=== PATIENT | female | born 1985 | race Two or more races ===

== ENCOUNTER → 2019-05-03 11:22 | Outpatient (CLI) | payer OTHER, SELFPAY ==
[2016-07-13 12:29] VITALS: BMI 26.3
[2019-05-03 12:04] LABS: Anion Gap 6 (5-15); BUN 21 mg/dL (7-18); BUN/Creat Ratio 26.6 RATIO (10-20); CRP, High Sensitivity Cardiac 0.96 mg/L; Calcium,Total 9.2 mg/dL (8.5-10.1); Chloride 109 mmol/L (98-107); Creatinine, Serum 0.79 mg/dL (0.55-1.02); EST Glomerular Filtration Rate 90 mL/min (>60); Est Glom Filt Rate - Afr Amer 108 mL/min (>60); Glucose 65 mg/dL (74-106); Potassium 4.2 mmol/L (3.5-5.1); Sodium Level 142 mmol/L (136-145); Thyroid Stim Hormone (TSH) 0.74 uIU/mL (0.358-3.74)
== END ==
PROVIDERS: Family Provider Family Medicine; PCP Family Medicine; Referring Provider Family Medicine; Visit Provider Family Medicine
DX: Z71.89 Other specified counseling (principal)
CPT/HCPCS: 36415; 80048; 84443; 86141

== ENCOUNTER → 2019-06-19 16:20 | Outpatient (CLI) | payer OTHER, SELFPAY ==
[2016-07-13 12:29] VITALS: BMI 26.3
[2019-06-19 17:41] LABS: Absolute Lymphocyte Count 2.65 X10^3/uL (0.83-4.51); Absolute Neutrophil Count 3.1 X10^3/uL (2.0-7.7); Basophil# 0.03 X10^3/uL; Basophil% 0.5 % (0-1); Eosinophils% 1.6 % (0-5); Hematocrit 39.1 % (37-47); Hemoglobin 12.8 g/dL (12.0-15.0); Lymphocyte # 2.65 X10^3/ul (4.0); Lymphocyte % 42.5 % (19-41); Mean Corp Hgb Conc 32.7 g/dL (32-36); Mean Corpuscular Hgb 29.9 pg (27.0-32.0); Mean Corpuscular Volume 91.4 fL (81-99); Mean Platelet Vol. 11.5 fl (6.2-12.0); Monocyte# 0.37 X10^3/uL; Monocyte% 5.9 % (0-10); NRBC Flagged by Analyzer 0 % (0-5); Neutrophil # 3.07 X10^3/uL (2.7-7.7); Neutrophil % 49.3 % (47-70); Platelet Count 234 K/mm3 (150-450); RBC Distribution Width CV 12.5 % (11.6-14.6); Red Blood Count 4.28 M/mm3 (4.2-5.4); White Blood Count 6.2 K/mm3 (4.4-11.0)
[2019-06-19 18:17] LABS: Internal QC Validated? YES +Cl - CLEAR BKGD
[2019-06-19 18:18] LABS: Pregnancy, Serum, hCG Quali. POSITIVE Negative; Thyroid Stim Hormone (TSH) 0.71 uIU/mL (0.358-3.74)
[2019-06-20 10:24] LABS: HIV - WCH Non-Reactive (Nonreactive); Hepatitis B Surface Antigen Non-Reactive (Nonreactive); Hepatitis C Antibody Non-Reactive (Nonreactive); Progesterone Level 24.86 ng/mL (See Comment); Rubella IgG 32.6 IU/mL
[2019-06-26 03:11] LABS: Prenatal RPR NONREACTIVE (NONREACTIVE)
== END ==
PROVIDERS: Family Provider Family Medicine; PCP Family Medicine; Referring Provider Family Medicine; Visit Provider Family Medicine
DX: Z34.90 Encounter for supervision of normal pregnancy, unspecified, unspecified trimester (principal)
CPT/HCPCS: 36415; 84144; 84443; 84703; 85025; 86703; 86762; 86803; 87340

== ENCOUNTER 2020-02-17 06:39 | Inpatient (IN) | payer OTHER, SELFPAY ==
[2016-07-13 12:29] VITALS: BMI 26.3
[2020-02-17] VITALS (76 sets, daily range): BP systolic 99–138; BP diastolic 58–90; PULSE 82–161; RESP 18–20; TEMP 36.4–37.7; O2SAT 91–100; BMI 26.2
[2020-02-17] MEDS: Lactated Ringers 1,000 ML 50 ML IV (07:10)
[2020-02-17] MEDS: Lactated Ringers 500 ML 999 ML IV (07:15)
[2020-02-17 07:32] LABS: Absolute Lymphocyte Count 1.39 X10^3/uL (0.83-4.51); Absolute Neutrophil Count 4.3 X10^3/uL (2.0-7.7); Basophil# 0.02 X10^3/uL; Basophil% 0.3 % (0-1); Eosinophil# 0.06 X10^3/uL; Hematocrit 38.9 % (37-47); Hemoglobin 12.7 g/dL (12.0-15.0); Lymphocyte # 1.39 X10^3/ul (4.0); Lymphocyte % 22.2 % (19-41); Mean Corp Hgb Conc 32.6 g/dL (32-36); Mean Corpuscular Hgb 30.4 pg (27.0-32.0); Mean Corpuscular Volume 93.1 fL (81-99); Mean Platelet Vol. 10.9 fl (6.2-12.0); Monocyte# 0.45 X10^3/uL; Monocyte% 7.2 % (0-10); NRBC Flagged by Analyzer 0 % (0-5); Neutrophil # 4.31 X10^3/uL (2.7-7.7); Neutrophil % 68.8 % (47-70); Platelet Count 184 K/mm3 (150-450); RBC Distribution Width CV 13.6 % (11.6-14.6); RBC Distribution Width SD 46.5 fl (35.1-43.9); Red Blood Count 4.18 M/mm3 (4.2-5.4); White Blood Count 6.3 K/mm3 (4.4-11.0)
--- NOTE | 2020-02-17 08:23 | PCM.HP.OB ---
- Problem List (1) 40 weeks gestation of Status: Acute History Date of Admission: 02/17/20 Final LAURY: 02/16/20 Final LAURY Source: US <20 weeks Gestational age: 40 Weeks and 1 Days History of this : This is a 35 year-old, G [2], P [1], at 40 weeks gestational age. Allergies No Known Allergies Allergy (Verified 07/08/16 13:58) Home Medications: Home Medications Vits [Prenatabs FA] 1 tablet PO DAILY 07/08/16 Ferrous Sulfate [Iron] 325 mg PO BID 02/17/20 Smoking Status: Never smoker Number of Fetus(es): 1 NST - FHR Rate Baby A Baseline: 130 Variability:: Moderate Accelerations:: 15 x 15 Decelerations:: None NST Reactive:: Yes FHR Category:: Category I Uterine Activity:: 7m History Past Pregnancies: PRIOR DELIVERY HISTORY DEL DATE GEST LAB WT LB WT OZ TYPE ANES LABOR [place] Jul 21 39 4 5 0 Vag Epidural No Labs: Mom's Labs & Results 02/17/20 02/17/20 02/17/20 07:10 07:10 07:45 WBC 6.3 RBC 4.18 L Hgb 12.7 Hct 38.9 MCV 93.1 MCH 30.4 MCHC 32.6 RDW Std Deviation 46.5 H RDW Coeff of Kira 13.6 Plt Count 184 MPV 10.9 Immature Gran % (Auto) 0.500 Neut % (Auto) 68.8 Lymph % (Auto) 22.2 [place] % (Auto) 7.2 Eos % (Auto) 1.0 Baso % (Auto) 0.3 Absolute Neuts (auto) 4.3 Absolute Lymphs (auto) 1.39 Nucleated RBC % 0 COVID-19 (MIHIR) Pending Blood Type Pending Antibody Screen Pending Course Did the patient receive Yes care? Labs Blood Type: A RH: POSITIVE RPR/VDRL/Syphilis Nonreactive Rubella status Immune HbSAg Negative Date Done: 07/09/19 Chlamydia Negative Gonorrhea Negative HIV/AIDS Non-Reactive Group B Strep: Negative Current Obstetrical History Gestational Diabetes No Incompetent Cervix No Infertility No IUGR No Macrosomia No Hypertension/Pre-eclampsia No Placenta Previa/Abruption No PTL/PROM No Uterine anomaly No Oligohydramnios No Polyhydramnios No Multiple gestation No Past Medical History Asthma No Diabetes No Hypertension No Heart disease No Mitral valve prolapse No Neurologic/Seizure disorder/ No Migraines Kidney disease No Liver disease No Varicosities No Clotting disorders/Hx of DVT No Thyroid Dysfunction No Other medical diseases No Psychiatric disorders No Major trauma No Abnormal PAP smear No Sleep apnea No Mammogram in the last 2 years No Social History Marital Status: Alleged father Michi Hx Smoking No Smoking Status Never smoker Expected Infant Delivery Method: Spontaneous Vaginal Number of Visits: 10 Review of Systems Constitutional: Denies: Chills, Fever, Weight Change HEENT: Denies: Head Aches, Sinus Congestion, Sinus Drainage Cardiovascular: Denies: Chest Pain, Palpitations Respiratory: Denies: Cough, Shortness of breath at rest, Sputum production Gastrointestinal: Denies: Abdominal Pain, Nausea, Vomiting Genitourinary: Denies: Dysuria Musculoskeletal: Denies: Joint Pain, Joint Tenderness Skin: Denies: Rash, Wounds Neurological: Denies: Numbness, Tingling, Focal weakness Psychiatric: Denies: Anxiety, Depression, Homicidal Ideations, Suicidal Ideations Hematologic/ Lymphatic: Denies: Easy Bruising, Easy Bleeding Physical Exam Vitals: Vital Signs Temp Pulse BP 98.6 F 99 121/82 H 02/17/20 07:12 02/17/20 07:12 02/17/20 07:12 General: Alert, Oriented x3, No apparent distress HEENT: Atraumatic, Normocephalic. Negative for: Thyromegaly, Lymphadenopathy Cardiovascular: Regular rate, Regular Rhythm Lungs: Clear to auscultation Abdomen: Bowel Sounds Present, Gravid Neurological: Deep Tendon Reflexes 2+/4 and Symmetrical, Neuro grossly intact MOBILITY ENGINEER: Normal external genitalia. Negative for: Vulvar lesions Estimated gestational size: Appropriate for gestational size Presentation: Cephalic Cervix Dilation (cm): 5 - per RN Station: -2 Effacement (%): 80 Assessment/Plan All Active Problems 40 weeks gestation of (Acute) A/P: This is a 35 year-old, G [2], P [1], at 40 weeks gestational age. SVE 5/80/-2 per client relations specialist UC Q7m SROM at 0330 NST FHR baseline 130, +accels, -decels, moderate variability, Category I Updated attending Dr. Lovelace on admission Expect Procedure Criteria Procedure Type: Elective COVID Risk Discussion: The surgeon/proceduralist and patient have discussed in detail the risk of exposure to and/or potential harm posed by the COVID-19 virus with having a surgery/procedure at this time versus the risk of delaying the surgery/procedure. It is not possible to know either the risk of delaying the surgery or procedure or chance of getting an infection with perfect accuracy, but a joint decision was made between the patient and the surgeon/proceduralist to proceed at this time with the scheduled surgery/procedure as indicated on the consent form.
[2020-02-17] MEDS: fentaNYL-bupivacaine (epidural) 100 ML BAG EPIDURAL ×2 (08:39→12:51)
[2020-02-17] MEDS: Oxytocin 30 units/NS 500 ml 30 UNITS/500 ML IV.SOLN IV (10:51)
[2020-02-17] MEDS: Mag Hydrox/Al Hydrox/Simeth 30 ML UDC PO (12:03)
--- NOTE | 2020-02-17 13:12 | PCM.PN.BLA ---
Progress Note LABOR PROGRESS NOTE Aleksandr is comfortable with her epidural. Reports heart racing intermittently. Denies chest pain, sob. AVSS GEN - NAD, AAO x 3 FHR 130, moderate variability, + accelerations, , + variability TOCO 3-4/10 min SVE 5/60/-3, moderate, midposition A/P: 35yo @ 40 1/7wga, Cat II FHR with intermittent maternal tachycardia -IVF bolus -IUPC placed, increase pitocin to adequacy -Maternal and statuses overall reassuring. STROKE Vital Signs/Narrative: Vital Signs Temp Pulse BP Pulse Ox 02/17/20 13:09 100 100 02/17/20 13:04 155 H 100 02/17/20 12:59 109 H 109/68 100 02/17/20 12:54 102 H 100 02/17/20 12:49 161 H 100 02/17/20 12:44 98 100 02/17/20 12:39 112 H 100 02/17/20 12:14 99.7 F H 02/17/20 12:08 99 97 02/17/20 12:03 98 96 02/17/20 11:58 95 99 02/17/20 11:53 107 H 98 02/17/20 11:52 103 H 131/90 H 02/17/20 11:48 101 H 100 02/17/20 11:06 93 109/70 02/17/20 11:03 98.9 F 91 100 02/17/20 10:58 95 100 02/17/20 10:53 92 100 02/17/20 10:48 85 100 02/17/20 10:43 103 H 100 02/17/20 10:38 93 100 02/17/20 10:33 92 100 02/17/20 10:28 85 100 02/17/20 10:23 93 100 02/17/20 10:18 85 100 02/17/20 10:13 88 100 02/17/20 10:08 84 100 02/17/20 10:03 92 100 02/17/20 09:58 84 100 02/17/20 09:53 117 H 100 02/17/20 09:48 93 100 02/17/20 09:43 93 100 02/17/20 09:38 93 99 02/17/20 09:36 82 127/85 H 02/17/20 09:33 99 100 02/17/20 09:28 109 H 100 02/17/20 09:23 118 H 100 02/17/20 09:18 93 97 02/17/20 09:13 140 H 100
[2020-02-17] MEDS: Dextrose 5%-Lactated Ringers 1,000 ML 125 ML IV (14:01)
[2020-02-17] MEDS: Oxytocin 30 units/NS 500 ml 30 UNITS/500 ML IV.SOLN 334 UNITS IV (14:58)
--- NOTE | 2020-02-17 17:19 | PCM.OPRPT ---
Problem List (1) (spontaneous vaginal delivery) Status: Acute (2) 40 weeks gestation of Status: Acute Vaginal Delivery Maternal Presentation: Spontaneous Rupture of Membranes Method of Induction: - - pitocin augmentation Amniotic Membrane Rupture Type: Spontaneous at home Rupture of Membrane time: 0300h 02/17/20 Amniotic Fluid Description: Clear Final LAURY: 02/16/20 Final LAURY Source: US <20 weeks Gestational age: 40 Weeks and 1 Days Date of Procedure: 02/17/20 Pre-Operative Diagnosis: 40 1/7wga Post-Operative Diagnosis: 40 1/7wga Surgery/ Procedure Performed: Spontaneous Vaginal Delivery Anesthesiologist: Jana Cárdenas Type of Anesthesia: Epidural Description of Procedure: Patient was FD/+3 station on my arrival with Cat I FHR. She pushed to deliver a vigorous female in OA. The was placed on the maternal abdomen and further attended by nursery personnel. The cord was doubly clamped and cut at 2 minutes of life. The placenta delivered spontaneously and appeared intact on inspection. A second degree perineal laceration with vaginal extension was repaired with 3-0 Vicryl Rapide with excellent hemostasis. Sponge and needle counts were correct x 2. Presentation: Vertex Placental Delivery Description: Spontaneous Placenta Disposition: [facility] Cord Vessel Description: 3 Vessels Nuchal Cord Compression: Without compression Cord Entanglement: Around neck x 1, loose Drain: Belle to straight drain Estimated Blood Loss: 500 mL Infant A gender: Female (1 minute): 8 (5 minute): 9 Episiotomy Description: None Laceration: Midline, Perineal Extension/lac, Vaginal Extension/lac, 2nd degree Medications given after delivery: IV Pitocin Complications: None
[2020-02-17] MEDS: 0.9% Saline Lock 10 ML Syringe IV (17:57)
[2020-02-17] MEDS: Ibuprofen 600 MG Tablet PO (19:14)
[2020-02-18 03:27] VITALS: BP 109/57; PULSE 89
[2020-02-18 03:30] VITALS: BP 109/57; PULSE 89; RESP 12; TEMP 37.2
[2020-02-18 08:20] VITALS: BP 129/75; PULSE 86; RESP 16; TEMP 37.1; O2SAT 98
--- NOTE | 2020-02-18 08:20 | PCM.PN.OB ---
Patient Problems: Active and Suspected Problems 40 weeks gestation of (Acute) (spontaneous vaginal delivery) (Acute) Subjective: Aleksandr is sore, but pain is manageable. She is out of bed, ambulating without difficulty. No voiding difficulty. Denies heavy lochia. is nursing well, but the latch was painful and Aleksandr had some bleeding. Objective: AVSS - Physical Exam Vitals/I&O's: Vital Signs Temp Pulse Resp BP Pulse Ox 99 F 89 12 109/57 L 98 02/18/20 03:30 02/18/20 03:30 02/18/20 03:30 02/18/20 03:30 02/17/20 23:51 Oxygen Delivery Method Room Air Weight: 69.4 kg Body Mass Index (BMI) 26.2 Intake and Output for Last 24 Hours 02/16/20 02/17/20 02/18/20 23:59 23:59 23:59 Intake Total 4998.85 / 4998.85 Output Total 2375 / 2375 Balance 2623.85 / 2623.85 General: Alert, Oriented x3, Cooperative, No apparent distress HEENT: Atraumatic, Normocephalic Lungs: Clear to auscultation, Normal air movement Cardiovascular: Regular rate, Regular Rhythm, Normal S1, Normal S2 Abdomen: Soft, Non Tender, Non-Distended, - - Fundus firm and nontender at the umbilicus, lochia moderate Extremities: No Calf Tenderness, - - trace b /l LE edema Neurological: Neuro grossly intact Psych/Mental Status: Normal Affect, Appropriate, Alert and oriented to time, place, person, mood and affect Laboratory Results 02/17/20 07:10: Blood Type A POSITIVE, Antibody Screen NEGATIVE 02/17/20 07:45: COVID-19 (MIHIR) Not Detected Current Medications Acetaminophen (Tylenol) 1,000 mg PO Q8H PRN PRN PRN Reason: Pain Score 1-3/10 Bisacodyl (Dulcolax) 10 mg RECTAL UD PRN PRN Reason: If no BM Dibucaine (Dibucaine) 1 applic TOPICAL TID PRN PRN; Protocol PRN Reason: Discomfort Hydrocortisone (Hytone) 1 applic TOPICAL TID PRN PRN; Protocol PRN Reason: Discomfort Ibuprofen (Motrin) 600 mg PO Q6H PRN PRN PRN Reason: Pain Score 1-10 Last Admin: 02/17/20 19:14 Dose: 600 mg Documented by: Methylergonovine Maleate (Methergine) 0.2 mg IM X1 PRN PRN Reason: Excess bleeding/uterine atony Ondansetron HCl (Zofran) 4 mg IV Q4H PRN PRN PRN Reason: Nausea Senna/Docusate Sodium (Senokot-S, Cathy-Colace) 1 - 2 tablet PO DAILY PRN PRN PRN Reason: Constipation Simethicone (Mylicon) 80 mg PO PCHS PRN PRN Reason: Indigestion/Stomach pain Sodium Chloride () 5 - 15 ml IV UD PRN PRN Reason: SALINE FLUSH Medical Necessity - Tobacco Use Smoking Status: Never smoker Assessment/Plan All Active Problems 40 weeks gestation of (Acute) (spontaneous vaginal delivery) (Acute) 35yo PPD#1 s/p doing well. Rh positive - nursing support and consultation as needed Will plan for discharge home later today
--- NOTE | 2020-02-18 08:27 | DCINST_ITS ---
Discharge Diet: No Restrictions Discharge Activity: Return to Normal Activity, May Shower, May Take a Tub Bath May resume sexual activity in: 4-6 weeks Lifting Restrictions: 10-20 lb Call your doctor if you observe: Fever of 101 or Higher, Inability to urinate, Inability to have a bowel movement, Using more than one pad per hour, Shortness of breath, Calf discomfort, Uncontrolled pain Cleanse incision/area with: Soap & Water Additional Instructions: If you experience any of the following, contact your healthcare provider. * Bleeding that soaks a pad every hour for 2 hours * Fever 100.4 or higher * Unrelieved incision or abdominal pain * Swelling, redness, discharge or bleeding from your incision or episiotomy site * Your incision begins to separate * Problems urinating (including inability to urinate or burning while urinating). * Visual changes * Severe headache * Flu-like symptoms * Pain or redness in one of both of your breasts * Pain, warmth, tenderness or swelling in your legs, especially the calf area * Frequent nausea and vomiting * Symptoms of depression or anxiety If you experience any of the following, call 911 or go to the nearest Emergency Room. * Chest pain * Problems breathing * Seizure activity * Partial or complete paralysis of a body part, slurred speech, weakness or drooping of the face, or a sudden inability to walk or hold your balance Allergies/Adverse Reactions: Allergies No Known Allergies Allergy (Verified 07/08/16 13:58) Medications to take at Discharge Vits [Prenatabs FA ] 1 tablet PO DAILY 07/08/16 Ferrous Sulfate [Iron] 325 mg PO BID 02/17/20 Ibuprofen [Motrin] 600 mg PO Q8H PRN PRN #30 tab 02/18/20 Senna/Docusate Sodium [Senokot-S] 1 - 2 tab PO DAILY PRN PRN #60 tab 02/18/20 The following prescriptions were given: Ibuprofen [Motrin] 600 mg PO Q8H PRN PRN #30 tab PRN Reason: Pain Score 1-05/15 Transmission Status: Pending to [id number] Senna/Docusate Sodium [Senokot-S] 1 - 2 tab PO DAILY PRN PRN #60 tab PRN Reason: Constipation Transmission Status: Pending to [id number] Please Follow Up With: Madelaine Lovelace MD - telehealth follow up When: 2-3 weeks Please Follow Up With: Madelaine Lovelace MD - visit When: 6 weeks Primary Care Physician: Real Holguin MD [Primary Care Provider] - Test Results: Test results from this visit will be discussed in further detail at your follow- up appointment, if applicable.
[2020-02-18 08:29] VITALS: BP 129/75; PULSE 86
[2020-02-18 13:09] VITALS: BP 112/72; PULSE 103; RESP 16; TEMP 37.3
== END 2020-02-18 16:50 | disposition home or self-care (01) | DRG 807 ==
LOC: WPOUT 06:43 → WP 06:43
PROVIDERS: Obstetrics & Gynecology; Admitting Provider Obstetrics & Gynecology; PCP Family Medicine
DX: O42.02 Full-term premature rupture of membranes, onset of labor within 24 hours of rupture (principal); Z37.0 Single live birth; O69.81X0 Labor and delivery complicated by cord around neck, without compression, not applicable or unspecified; O70.1 Second degree perineal laceration during delivery; Z3A.40 40 weeks gestation of pregnancy
CPT/HCPCS: 59050; 85025; 86850; 86900; 86901; 87635; 99218; G2023; J7120; A4216; G0378; U0003

== ENCOUNTER → 2020-09-27 12:15 | Outpatient (CLI) | payer OTHER, SELFPAY ==
[2020-02-17 06:58] VITALS: BMI 26.2
--- NOTE | 2020-09-27 12:19 | RAD_ITS ---
STUDY: X-RAY - RIGHT KNEE REASON FOR EXAM: Right knee pain for several months, no specific injury. TECHNIQUE: 4 view(s) of the knee. COMPARISON: None. FINDINGS: Normal visualized distal femur. Normal visualized proximal tibia and fibula. Normal proximal tibiofibular articulation. Normal medial femorotibial compartment. Normal lateral femorotibial compartment. Normal patellofemoral articulation. The soft tissue structures are unremarkable. RAD/Knee 4 or More Views IMPRESSION: Normal x-ray examination of the right knee. Electronically Signed: Jorge Arcos MD at 12:41 EST Tel , Service support ,
== END ==
PROVIDERS: PCP Family Medicine; Referring Provider Family Medicine; Visit Provider Family Medicine
DX: M25.561 Pain in right knee (principal)
CPT/HCPCS: 73564

== ENCOUNTER 2020-11-22 15:00 | Outpatient (RCR) | payer OTHER, SELFPAY ==
[2020-02-17 06:58] VITALS: BMI 26.2
--- NOTE | 2020-11-16 09:12 | HP.PTEVAL ---
Patient's Visit Information KARI MILTON is a 35 year old F referred to Physical Therapy by Dr. Real Holguin MD with a diagnosis of R Pes anserinus bursitis and gluteal weakness. Date of Evaluation: 11/15/20 Physical Therapist: Justino Fuentes DPT - Visit Plan Frequency: 2x /Week Duration: 4 Weeks Plan: Decrease pain and inflammation of R knee with ice and iontophoresis. Strengthening gluteal muscles and R LE. stretching hamstrings and quadriceps bilaterally. Gave her HEP for heel slides of R LE and long sitting HS stretch bilaterally - Subjective Pt. states that she has been having the R medial knee pain for a few months and it has gotten worse over the past few days. She doesnt note anything she has done differently, but she went for a hike with her kids last sunday. She also notes that she is standing more carrying her 9 month old daughter. Flexing her R knee is giving her the most pain. Medication rx from the doctor has improved her pain some, and she has been on the medication for 3 days. No falls or mechanism of injury. No numbness or tingling. 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 Goal for PT: wants to get rid of pain. She is traveling at the end of the month to [place]. - Pain R medial knee Pain Intensity (Out of 10): 7 Pain Intensity Range: 7, 9 - Objective Neuro: sensation WNL bilaterally; achilles tendon reflex 2/3 bilaterally. MMT: Hip flex L 5/5, hip flex R 4-/5 with pain ; L knee flex 5/5; R knee flex 3/5; L knee ext 5/5; R knee ext 3+/5. ROM: R knee 0-0-134deg. L knee 0-0-92deg. Hamstring tightness bilaterally. Calvin stretch: L LE less tight; R LE stopped due to increased pain. Palpation: R pes anserine very sensastive to light touch; R medial knee minimal swelling compared to the L medial knee - Goals Goal 1:: Decrease R knee pain and inflammation by 50% to aid with ADLs and manage children. Goal Time Frame: 2-4 Weeks Goal 2:: STG: Increase ROM of R knee by 15-20 degrees for a normal gait pattern. Goal Time Frame: 2-4 Weeks Goal 3:: Increase strength of R LE by 1 grade to aid with ADLs. Goal Time Frame: 2-4 Weeks Goal 4:: I with HEP. Goal Time Frame: 4-6 Weeks Goal 5:: LTG: Pt. to have full ROM of R knee without increase in symptoms. - Rehabilitation Potential Physical Therapy Diagnosis: Pain, inflammation and weakness due to R pes anserinus bursitis Rehabilitation Potential: Good - Anticipated Interventions Patient/Client Instruction: Educate patient on: Condition, Plan of Care For the Purpose of:: To decrease pain, To decrease swelling/inflammation, To increase ROM, To improve gait and locomotor functions, To increase flexibility/ROM Therapeutic Exercise to Include: Strength training, Flexibilty training, Active ROM For the Purpose of:: To increase ROM, To increase flexibility/ROM Iontophoresis (with Dexamethozone, with Acetic acid): Yes Cryotherapy (ice pack, ice massage): Yes For the Purpose of:: To decrease pain, To decrease swelling/inflammation Thank you for the opportunity to evaluate your patient. For Medicare and Medicare HMO plans, please review the plan of care and approve it. It will need to be FAXED BACK to us at [phone] for Medicare purposes. For Medicare only, by signing this I certify the plan of care. Please let me know if there are questions or concerns regarding this plan of care. Physician Signature: Date:
--- NOTE | 2020-11-23 07:34 | HP.PT.NRP ---
KARI TUCKER HARJIT MILTON was seen in my office for initial evaluation on 11/15/20. The following Plan of Care was established for this patient: Initial Frequency: 2x /Week Initial Duration: 4 Weeks Patient/Client Instruction: Educate patient on: Condition, Plan of Care For the Purpose of:: To decrease pain, To decrease swelling/inflammation, To increase ROM, To improve gait and locomotor functions, To increase flexibility/ROM Therapeutic Exercise to Include: Strength training, Flexibilty training, Active ROM For the Purpose of:: To increase ROM, To increase flexibility/ROM Iontophoresis (with Dexamethozone, with Acetic acid): Yes Cryotherapy (ice pack, ice massage): Yes For the Purpose of:: To decrease pain, To decrease swelling/inflammation This patient was last seen in our office 11/22/20. Pertinent comments regarding their Physical therapy will appear below: Pt. came in for PT today and saw our SOLIDWORKS DESIGNER. Pt. reports that she is no longer having any pain and is doing well. Pt. will be DC from PT this date. Pt. is also leaveing country at this point in time. Pt. was treated with stretching, ionto, and ROM of her knee. Pt. will be DC to HEP at this point in time and is to follow up [facility] physician if needed. At this point I will be discontinuing this patient from physical therapy. I would be happy to see this patient again in the future if found appropriate by the physician. Thank you! Justino Fuentes, PRINCESS
== END 2020-11-22 19:00 | disposition home or self-care (01) ==
LOC: PT 15:00
PROVIDERS: PCP Family Medicine; Referring Provider Family Medicine; Visit Provider Family Medicine
DX: R53.1 Weakness (principal)
CPT/HCPCS: 97110; 97161

== ENCOUNTER → 2020-11-30 | Outpatient (CLI) | payer OTHER, SELFPAY ==
[2020-02-17 06:58] VITALS: BMI 26.2
== END | disposition home or self-care (01) ==
PROVIDERS: Visit Provider Family Medicine
DX: Z20.822 Contact with and (suspected) exposure to COVID-19 (principal)
CPT/HCPCS: 87635; U0002

== ENCOUNTER → 2021-07-28 12:27 | Outpatient (CLI) | payer OTHER, SELFPAY ==
--- NOTE | 2021-07-28 12:32 | US_ITS ---
STUDY: ULTRASOUND BREAST - LEFT REASON FOR EXAM: Female, 36 years old. Patient reports intermittent left breast lumps. Patient is breast-feeding. TECHNIQUE: Axial and longitudinal images of the LEFT breast were performed with a high resolution ultrasound transducer. # OF IMAGES: 54 COMPARISON: None. FINDINGS: LEFT Breast: Examination of the left breast shows dense fibroglandular tissue. Minimal ductal dilatation. US/Breast Limited Unilateral IMPRESSION: Minimal ductal dilatation. No focal cystic or solid mass. Negative imaging should not prohibit further evaluation of any clinically suspicious finding. ASSESSMENT CATEGORY: BIRADS Category 2: Benign. A letter regarding these results will be sent to the patient by the facility within 30 days. Electronically Signed: Calvin Olivas MD at 9:40 EST , Service support ,
== END ==
PROVIDERS: PCP Family Medicine; Referring Provider Obstetrics & Gynecology; Visit Provider Obstetrics & Gynecology
DX: N64.4 Mastodynia (principal); N63.20 Unspecified lump in the left breast, unspecified quadrant
CPT/HCPCS: 76642

== ENCOUNTER → 2023-04-20 | Outpatient (CLI) | payer OTHER, SELFPAY ==
[2023-04-20 12:04] LABS: Bacteria 0 SEEN /hpf (None Seen); Mucous, Urine 0 SEEN /hpf (<or=2+); Red Blood Cells-Urine 0 SEEN /hpf (0-5); Squamous Epithelial Cells - UA 0 SEEN /hpf (5-10); White Blood Cells 0 SEEN /hpf (0-5)
[2023-04-20 15:31] LABS: Absolute Lymphocyte Count 1.69 X10^3/uL (0.83-4.51); Absolute Neutrophil Count 1.8 X10^3/uL (2.0-7.7); Basophil# 0.04 X10^3/uL; Eosinophils% 2.6 % (0-5); Hematocrit 39.5 % (37-47); Hemoglobin 12.9 g/dL (12.0-15.0); Lymphocyte # 1.69 X10^3/ul (0.83-4.51); Lymphocyte % 43.1 % (19-41); Mean Corp Hgb Conc 32.7 g/dL (32-36); Mean Corpuscular Hgb 30.4 pg (27.0-32.0); Mean Corpuscular Volume 92.9 fL (81-99); Monocyte# 0.26 X10^3/uL; Monocyte% 6.6 % (0-10); NRBC Flagged by Analyzer 0 % (0-5); Neutrophil # 1.82 X10^3/uL (2.7-7.7); Neutrophil % 46.4 % (47-70); Platelet Count 216 K/mm3 (150-450); RBC Distribution Width CV 12.3 % (11.6-14.6); RBC Distribution Width SD 41.9 fl (35.1-43.9); Red Blood Count 4.25 M/mm3 (4.2-5.4); White Blood Count 3.9 K/mm3 (4.4-11.0)
[2023-04-20 15:32] LABS: Color, Urine Yellow (Yellow); Glucose, Dipstick Normal (Normal); Ketone-Dipstick Negative (Negative); Leukocyte Esterase-Dipstick Negative /ul (Negative); Nitrite-Dipstick Negative (Negative); Occult Blood-Urine Negative /ul (Negative); Protein-Dipstick Negative (Negative); Urine Bilirubin Dipstick Negative (Negative); Urine Clarity Clear (Clear); Urine Urobilinogen Normal (Normal)
[2023-04-20 15:49] LABS: AST(SGOT) 9 U/L (15-37); Alanine Aminotransfer ALT/SGPT 18 U/L (13-56); Albumin, Serum 3.8 g/dL (3.2-5.0); Alkaline Phosphatase 35 U/L (45-117); Anion Gap 5 (5-15); BUN 16 mg/dL (7-18); BUN/Creat Ratio 21.8 RATIO (10-20); CRP < 2.90 mg/L (0.0-3.0); Calcium,Total 9.2 mg/dL (8.5-10.1); Chloride 107 mmol/L (98-107); Creatinine, Serum 0.73 mg/dL (0.55-1.02); EST Glomerular Filtration Rate 95 mL/min (>60); Est Glom Filt Rate - Afr Amer 115 mL/min (>60); Globulin 3.7 g/dL (2.2-4.2); Glucose 70 mg/dL (74-106); Lipase 29 U/L (13-75); Protein, Total 7.5 g/dL (6.4-8.2); Sodium Level 139 mmol/L (136-145)
== END | disposition home or self-care (01) ==
LOC: MTLAB 11:59
PROVIDERS: PCP Family Medicine; Referring Provider Family Medicine; Visit Provider Family Medicine
DX: R10.13 Epigastric pain (principal)
CPT/HCPCS: 36415; 80053; 81001; 83690; 85025; 86140; 87086

== ENCOUNTER → 2023-04-21 | Outpatient (CLI) | payer OTHER, SELFPAY ==
--- NOTE | 2023-04-21 12:57 | RAD_ITS ---
STUDY: X-RAY - ABDOMEN/PELVIS REASON FOR EXAM: Female, 38 years old. ABD PAIN TECHNIQUE: AP supine and upright views of the abdomen and pelvis. COMPARISON: None. FINDINGS: Normal visualized lung bases. There is an unremarkable bowel gas pattern. There is no demonstrated free abdominal air. The visualized liver, spleen and kidneys are grossly normal in size and morphology. Normal soft tissue structures. Mild dextroscoliosis of the lumbar spine. RAD/Abd Inc Decub and/or Erect IMPRESSION: Normal x-ray examination of the abdomen and pelvis. Electronically Signed: José Potter MD at 20:18 EDT ,
== END | disposition home or self-care (01) ==
LOC: RAD 12:56
PROVIDERS: PCP Family Medicine; Visit Provider Physician Assistant Medical
DX: R10.9 Unspecified abdominal pain (principal)
CPT/HCPCS: 74019

== ENCOUNTER 2023-12-09 16:46 | Emergency (ER) | payer OTHER, SELFPAY ==
[2023-12-09 16:47] VITALS: BP 141/95; PULSE 81; RESP 18; TEMP 36.1; O2SAT 100; BMI 23.2
--- NOTE | 2023-12-09 17:00 | CT_ITS ---
EXAM: CT ABDOMEN AND PELVIS WITHOUT INTRAVENOUS CONTRAST CLINICAL INDICATION: RLQ PAIN TECHNIQUE: Helically acquired images were obtained of the abdomen and pelvis without intravenous contrast. This CT exam was performed using one or more of the following dose reduction techniques: automated exposure control, adjustment of the mA and/or kV according to patient size, and/or use of iterative reconstruction technique. RADIATION DOSE: CTDIvol = 6.10 mGy, DLP = 274.33 mGy-cm COMPARISON: No relevant prior studies available. FINDINGS: LOWER THORAX: Unremarkable. Lung bases are clear. No cardiomegaly. No significant pericardial effusion. ABDOMEN: LIVER: Unremarkable. Homogeneous. GALLBLADDER AND BILE DUCTS: Unremarkable. No calcified gallstones. No gallbladder distention or wall edema. No intra- or extrahepatic biliary ductal dilation. PANCREAS: Unremarkable. No focal cystic mass. SPLEEN: Unremarkable. Normal size without focal cystic or solid mass. ADRENALS: Unremarkable. No nodules. KIDNEYS AND URETERS: Unremarkable. Normal renal size and position. No hydronephrosis. STOMACH AND BOWEL: Unremarkable. No stomach or bowel distention. No focal inflammatory change. PELVIS: APPENDIX: No evidence of acute appendicitis. BLADDER: The urinary bladder is distended. This can suggest urinary retention. REPRODUCTIVE: Unremarkable as visualized. No mass. ABDOMEN and PELVIS: INTRAPERITONEAL SPACE: Unremarkable. No ascites or other fluid collection. No free air. BONES/JOINTS: Unremarkable. No suspicious lytic or blastic abnormality. SOFT TISSUES: Unremarkable. No discrete abdominal or pelvic wall hernia. VASCULATURE: Unremarkable. Abdominal aorta is non-dilated. LYMPH NODES: Unremarkable. No enlarged lymph nodes. CT/Abdomen/Pelvis without Cont IMPRESSION: The urinary bladder is distended. This can suggest urinary retention. Electronically Signed: Gabo Cruz MD at 18:24 EDT ,
--- NOTE | 2023-12-09 17:01 | EDS_ITS ---
HPI History of Present Illness Chief Complaint: Abd Pain Informant: patient Onset/Context/Timing Onset: Today Context: Sudden Onset Narrative Narrative: Patient presents with sudden onset of right lower quadrant abdominal pain within the last hour. states they were out to eat with friends. Patient went to the restroom. She states she urinated without pain, then noted sudden sharp onset of pain in the right lower quadrant into the groin line. Any movement causes significant pain. She has not taken anything for pain at this point. She denies history of ovarian cyst. Her last menstrual cycle just ended 2 days ago. She denies possibility of . No history of kidney stone. PFSH PFSH Home Medications tramadol 50 mg tablet 50 mg PO Q8H PRN pain #14 tabs 12/09/23 [Rx Last Taken Unknown] valacyclovir 500 mg tablet 500 mg PO DAILY 12/09/23 [History Last Taken Unknown] Allergy/AdvReac Type Severity Reaction Status Date / Time No Known Allergies Allergy Verified 12/09/23 16:48 Social History Smoking Status: Never smoker ROS ROS ED Constitutional Constitutional ED: Denies chills or fever(s) Eyes Eyes: Denies discharge from eye(s) ENT ENT ED: Denies discharge from eye(s), rhinorrhea or sore throat Cardiovascular Cardiovascular: Denies chest pain or palpitations Respiratory/Chest Respiratory/Chest: Denies cough or dyspnea Gastrointestinal Gastrointestinal: Reports abdominal pain; Denies diarrhea, nausea or vomiting Genitourinary Genitourinary ED: Denies difficulty urinating, dysuria or hematuria Musculoskeletal Musculoskeletal: Denies back pain or extremity pain Integumentary Denies Abrasions or rash Neurologic Neurologic: Denies headache(s) or weakness Allergic/Immunologic Allergic/Immunologic ED: Denies lip swelling or urticaria EXAM Physical Exam Const Vital Signs: 12/09/23 16:47 12/09/23 18:46 Temperature 97 F L 97.6 F L Temperature Source Temporal Temporal Pulse Rate 81 65 Respiratory Rate 18 Blood Pressure 141/95 H 100/70 Blood Pressure Mean 110 80 Pulse Ox 100 97 Oxygen Delivery Method Room Air Room Air Positive well nourished and well developed General Appearance ED: well developed HEENT Reports moist mucous membranes Eyes EOMs intact bilaterally Neck no lymphadenopathy Chest Wall inspection of chest normal and palpation of chest normal Resp normal respiratory effort and clear to auscultation bilaterally Cardio regular rate and regular rhythm GI GI Narrative: Abdomen soft with moderate tenderness to the right lower quadrant. Hypoactive but present bowel sounds are noted. Extremity normal to inspection Neuro oriented x3 and no sensory deficits noted Motor Exam: strength 5/5 throughout Psych Mood & Affect: anxious Skin no rashes or lesions noted MDM MDM MDM Narrative Medical decision making narrative: IV line established. Patient given 2 mg of morphine, 15 mg of Toradol, 4 mg of Zofran. IV fluids initiated. Labwork obtained to evaluate for leukocytosis, anemia, and electrolyte derangement. Urinalysis obtained to evaluate for infection/hematuria. CT flank obtained to evaluate for potential kidney stone versus ovarian cyst. History & Record Review Discussion w/independent historian: Patient and Significant other Additional record(s) reviewed:: Prior labs Lab Data Attestation: I reviewed the patient's lab results. Labs: Laboratory Results - last 24 hr 12/09/23 12/09/23 17:08 18:42 WBC 4.7 RBC 4.31 Hgb 12.9 Hct 38.8 MCV 90.0 MCH 29.9 MCHC 33.2 RDW Std Deviation 41.1 RDW Coeff of Kira 12.4 Plt Count 215 MPV 10.4 Immature Gran % (Auto) 0.200 Neut % (Auto) 44.3 L Lymph % (Auto) 40.5 [place] % (Auto) 9.0 Eos % (Auto) 5.1 H Baso % (Auto) 0.9 Absolute Neuts (auto) 2.1 Absolute Lymphs (auto) 1.90 Nucleated RBC % 0 Sodium 137 Potassium 3.2 L Chloride 104 Carbon Dioxide 27.0 Anion Gap 6 BUN 15 Creatinine 1.03 H Estim Creat Clear Calc 62.46 Est GFR (MDRD) Af Amer 78 Est GFR (MDRD) Non-Af 64 BUN/Creatinine Ratio 14.6 Glucose 121 H Calcium 8.8 Serum , Qual NEGATIVE Urine Color Yellow Urine Clarity Clear Urine pH 7.0 Ur Specific [place] 1.010 Urine Protein Negative Urine Glucose (UA) Normal Urine Ketones Negative Urine Occult Blood Negative Urine Nitrite Negative Urine Bilirubin Negative Urine Urobilinogen Normal Ur Leukocyte Esterase Negative Urine RBC 0 SEEN Urine WBC 0 SEEN Ur Squamous Epith Cells 0 SEEN Urine Bacteria 0 SEEN Urine Mucus 0 SEEN Radiography Diagnostic Testing: Clinical Impression(s) from Imaging Studies Abdomen/Pelvis CT 12/09/23 17:00 IMPRESSION: The urinary bladder is distended. This can suggest urinary retention. Electronically Signed: Gabo Cruz MD at 18:24 EDT , Transvaginal US 12/09/23 19:24 IMPRESSION: There are no acute findings. Electronically Signed: Gabo Cruz MD at 20:51 EDT , Treatment and Re-Evaluation :: CBC was normal white count 4.7 the hemoglobin of 12.9. Chemistry studies significant only for slightly low potassium at 3.2. BUN is 15 and creatinine is 1.03. test is negative. Urinalysis reveals no evidence of infection. No blood appreciated. CT scan of the flank reveals a distended urinary bladder which can suggest urinary retention. After returning from CT patient did go to the restroom to provide her urine sample. Approximately 30 minutes later nursing staff did BladderScan the patient and she still has greater than 550 cc of urine in her bladder. She will be sent to the restroom again to empty her bladder. Immediately upon return to her room we will repeat the bladder scan to see if she has significant retention. She does feel improved at this time. Patient got up and went to the restroom. When she returned to the room she had less than 100 cc left in her bladder. Given her degree of pain I did elect to perform a pelvic ultrasound. This reveals no acute findings. Test results discussed with patient and at bedside. They are comfortable with discharge to home and will follow-up with her doctor. She will try ibuprofen or Aleve, but I will write her a few tramadol for breakthrough pain if needed. Return instructions given. Discharge Plan Triage Chief Complaint: Abd Pain ED Provider: Daisha Redman Dx/Rx/DC Orders Clinical Impression: Abdominal pain Instructions: ED Abdominal Pain Unkn Cause Fem Prescriptions: New tramadol 50 mg tablet 50 mg PO Q8H PRN (Reason: pain) Qty: 14 0RF No Action valacyclovir 500 mg tablet 500 mg PO DAILY Primary Care Provider: Real Holguin Referrals: Real Holguin MD [Primary Care Provider] - 1 Week Disposition Disposition: Home, Self Care
[2023-12-09] MEDS: 0.9% Normal Saline (1000mL) 1,000 ML 150 ML IV (17:11)
[2023-12-09] MEDS: Morphine 2 MG/ML Syringe IV (17:11)
[2023-12-09] MEDS: Ondansetron 4 MG/2 ML Vial IV (17:11)
[2023-12-09] MEDS: Ketorolac 15 MG/ML Vial IV (17:11)
[2023-12-09 17:15] LABS: Bacteria 0 SEEN /hpf (None Seen); Mucous, Urine 0 SEEN /hpf (<or=2+); Red Blood Cells-Urine 0 SEEN /hpf (0-5); Squamous Epithelial Cells - UA 0 SEEN /hpf (5-10); White Blood Cells 0 SEEN /hpf (0-5)
[2023-12-09 17:28] LABS: Absolute Neutrophil Count 2.1 X10^3/uL (2.0-7.7); Basophil# 0.04 X10^3/uL; Basophil% 0.9 % (0-1); Eosinophil# 0.24 X10^3/uL; Eosinophils% 5.1 % (0-5); Hematocrit 38.8 % (37-47); Hemoglobin 12.9 g/dL (12.0-15.0); Lymphocyte % 40.5 % (19-41); Mean Corp Hgb Conc 33.2 g/dL (32-36); Mean Corpuscular Hgb 29.9 pg (27.0-32.0); Mean Platelet Vol. 10.4 fl (6.2-12.0); Monocyte# 0.42 X10^3/uL; NRBC Flagged by Analyzer 0 % (0-5); Neutrophil # 2.08 X10^3/uL (2.7-7.7); Neutrophil % 44.3 % (47-70); Platelet Count 215 K/mm3 (150-450); RBC Distribution Width CV 12.4 % (11.6-14.6); RBC Distribution Width SD 41.1 fl (35.1-43.9); Red Blood Count 4.31 M/mm3 (4.2-5.4); White Blood Count 4.7 K/mm3 (4.4-11.0)
[2023-12-09 17:40] LABS: Internal QC Validated? YES +Cl - CLEAR BKGD; Pregnancy, Serum, hCG Quali. NEGATIVE Negative
[2023-12-09 17:43] LABS: Anion Gap 6 (5-15); BUN 15 mg/dL (7-18); BUN/Creat Ratio 14.6 RATIO (10-20); Calcium,Total 8.8 mg/dL (8.5-10.1); Chloride 104 mmol/L (98-107); Creatinine, Serum 1.03 mg/dL (0.55-1.02); EST Glomerular Filtration Rate 64 mL/min (>60); Est Glom Filt Rate - Afr Amer 78 mL/min (>60); Estimated Creatinine Clearance 62.46 ml/min; Glucose 121 mg/dL (74-106); Potassium 3.2 mmol/L (3.5-5.1); Sodium Level 137 mmol/L (136-145)
[2023-12-09 18:46] VITALS: BP 100/70; PULSE 65; TEMP 36.4; O2SAT 97
[2023-12-09 18:50] LABS: Color, Urine Yellow (Yellow); Glucose, Dipstick Normal (Normal); Ketone-Dipstick Negative (Negative); Leukocyte Esterase-Dipstick Negative /ul (Negative); Nitrite-Dipstick Negative (Negative); Occult Blood-Urine Negative /ul (Negative); Protein-Dipstick Negative (Negative); Urine Bilirubin Dipstick Negative (Negative); Urine Clarity Clear (Clear); Urine Urobilinogen Normal (Normal)
--- NOTE | 2023-12-09 19:24 | US_ITS ---
STUDY: ULTRASOUND OF THE FEMALE PELVIS - COMPLETE REASON FOR EXAM: Female, 38 years old. pelvic pain TECHNIQUE: Endovaginal. Transvaginal US was obtained to better visualized the ovaries. COMPARISON: None. FINDINGS: The uterus is retroflexed and is in a midline position. The uterus measures 7.7 cm. Normal uterine cervix. The endometrium measures 6.3 mm in thickness, and is hyperechoic. There is no demonstrated endometrial mass. There is no demonstrated myometrial mass. I.U.D. - The patient does not have an I.U.D. The right ovary is visualized. The right ovary measures 2.7 cm. There is no right ovarian cyst or ovarian mass. There is no visualized right adnexal mass or complex lesion. There is normal arterial and normal venous vascularity. The left ovary is visualized. The left ovary measures 3.9 cm. There is no left ovarian cyst or ovarian mass. There is no visualized left adnexal mass or complex lesion. There is normal arterial and normal venous vascularity. There is no fluid in the cul-de-sac. Unremarkable urinary bladder. US/Transvaginal Non- IMPRESSION: There are no acute findings. Electronically Signed: Gabo Cruz MD at 20:51 EDT ,
== END 2023-12-09 21:06 | disposition home or self-care (01) ==
PROVIDERS: Emergency Provider Emergency Medicine; PCP Family Medicine; Visit Provider Emergency Medicine
DX: R10.31 Right lower quadrant pain (principal)
CPT/HCPCS: 74176; 76830; 80048; 81001; 84703; 85025; 93976; 96361; 96374; 96375; 99284; J2405

== ENCOUNTER → 2023-12-17 | Outpatient (CLI) | payer OTHER, SELFPAY ==
[2023-12-17 13:09] LABS: ALB/GLOB Ratio 1.1 RATIO (0.9-2.4); AST(SGOT) 10 U/L (15-37); Alanine Aminotransfer ALT/SGPT 16 U/L (13-56); Albumin, Serum 3.6 g/dL (3.2-5.0); Alkaline Phosphatase 38 U/L (45-117); Anion Gap 7 (5-15); BUN 12 mg/dL (7-18); BUN/Creat Ratio 15.7 RATIO (10-20); Calcium,Total 9.1 mg/dL (8.5-10.1); Chloride 106 mmol/L (98-107); Creatinine, Serum 0.76 mg/dL (0.55-1.02); EST Glomerular Filtration Rate 91 mL/min (>60); Est Glom Filt Rate - Afr Amer 110 mL/min (>60); Globulin 3.3 g/dL (2.2-4.2); Glucose 89 mg/dL (74-106); Magnesium 2.3 mg/dL (1.6-2.6); Potassium 3.9 mmol/L (3.5-5.1); Protein, Total 6.9 g/dL (6.4-8.2); Sodium Level 138 mmol/L (136-145)
== END | disposition home or self-care (01) ==
LOC: MFPLAB 10:58
PROVIDERS: PCP Family Medicine; Visit Provider Family Medicine
DX: E87.6 Hypokalemia (principal)
CPT/HCPCS: 36415; 80053; 83735